=== PATIENT | male | born 1940 | race Caucasian/White ===

== ENCOUNTER → 2018-09-30 | Outpatient (CLI) | payer OTHER ==
[~2018-09-30] MED LIST: ACETAMINOPHEN325 M1 PO; ADULT LOW DOSE81 MG PO; ALTACE5 M1 PO; EFFIENT10 MG PO; FISHOIL; LOPRESSOR PO; NIASPAN PO; OMEPRAZOLE40 MG PO; SIMVASTATIN80 MG PO
== END ==
LOC: HYPER
DX: L59.8 Other specified disorders of the skin and subcutaneous tissue related to radiation (principal); N30.41 Irradiation cystitis with hematuria; R73.09 Other abnormal glucose; Y84.2 Radiological procedure and radiotherapy as the cause of abnormal reaction of the patient, or of later complication, without mention of misadventure at the time of the procedure

== ENCOUNTER → 2018-10-01 | Outpatient (CLI) | payer OTHER | LOC: HYPER | DX: L59.8 Other specified disorders of the skin and subcutaneous tissue related to radiation (principal); N30.41 Irradiation cystitis with hematuria; R73.09 Other abnormal glucose; Y84.2 Radiological procedure and radiotherapy as the cause of abnormal reaction of the patient, or of later complication, without mention of misadventure at the time of the procedure ==

== ENCOUNTER → 2018-10-02 | Outpatient (CLI) | payer OTHER | LOC: HYPER 10-01 07:42 | DX: L59.8 Other specified disorders of the skin and subcutaneous tissue related to radiation (principal); N30.41 Irradiation cystitis with hematuria; M87.38 Other secondary osteonecrosis, other site; R73.09 Other abnormal glucose; Y84.2 Radiological procedure and radiotherapy as the cause of abnormal reaction of the patient, or of later complication, without mention of misadventure at the time of the procedure ==

== ENCOUNTER → 2018-10-03 | Outpatient (CLI) | payer OTHER | LOC: HYPER 07:05 | DX: L59.8 Other specified disorders of the skin and subcutaneous tissue related to radiation (principal); N30.41 Irradiation cystitis with hematuria; M87.38 Other secondary osteonecrosis, other site; R73.09 Other abnormal glucose; Y84.2 Radiological procedure and radiotherapy as the cause of abnormal reaction of the patient, or of later complication, without mention of misadventure at the time of the procedure ==

== ENCOUNTER → 2018-10-04 | Outpatient (CLI) | payer OTHER | LOC: HYPER 07:56 | DX: L59.8 Other specified disorders of the skin and subcutaneous tissue related to radiation (principal); M87.38 Other secondary osteonecrosis, other site; N30.41 Irradiation cystitis with hematuria; R73.09 Other abnormal glucose; Y84.2 Radiological procedure and radiotherapy as the cause of abnormal reaction of the patient, or of later complication, without mention of misadventure at the time of the procedure ==

== ENCOUNTER → 2018-10-07 | Outpatient (CLI) | payer OTHER | LOC: HYPER 07:10 | DX: L59.8 Other specified disorders of the skin and subcutaneous tissue related to radiation (principal); N30.41 Irradiation cystitis with hematuria; M87.88 Other osteonecrosis, other site; R73.09 Other abnormal glucose; Y84.2 Radiological procedure and radiotherapy as the cause of abnormal reaction of the patient, or of later complication, without mention of misadventure at the time of the procedure ==

== ENCOUNTER → 2018-10-08 | Outpatient (CLI) | payer OTHER | LOC: HYPER 06:59 | DX: L59.8 Other specified disorders of the skin and subcutaneous tissue related to radiation (principal); N30.41 Irradiation cystitis with hematuria; M87.88 Other osteonecrosis, other site; R73.09 Other abnormal glucose; Y84.2 Radiological procedure and radiotherapy as the cause of abnormal reaction of the patient, or of later complication, without mention of misadventure at the time of the procedure ==

== ENCOUNTER → 2018-10-15 | Outpatient (CLI) | payer OTHER | LOC: HYPER 06:37 | DX: L59.8 Other specified disorders of the skin and subcutaneous tissue related to radiation (principal); N30.41 Irradiation cystitis with hematuria; R73.09 Other abnormal glucose; Y84.2 Radiological procedure and radiotherapy as the cause of abnormal reaction of the patient, or of later complication, without mention of misadventure at the time of the procedure ==

== ENCOUNTER → 2018-10-16 | Outpatient (CLI) | payer OTHER | LOC: HYPER 06:50 | DX: L59.8 Other specified disorders of the skin and subcutaneous tissue related to radiation (principal); N30.41 Irradiation cystitis with hematuria; R73.09 Other abnormal glucose; Y84.2 Radiological procedure and radiotherapy as the cause of abnormal reaction of the patient, or of later complication, without mention of misadventure at the time of the procedure ==

== ENCOUNTER → 2018-10-17 | Outpatient (CLI) | payer OTHER | LOC: HYPER 10-14 14:24 | DX: L59.8 Other specified disorders of the skin and subcutaneous tissue related to radiation (principal); N30.41 Irradiation cystitis with hematuria; M87.88 Other osteonecrosis, other site; R73.09 Other abnormal glucose; Y84.2 Radiological procedure and radiotherapy as the cause of abnormal reaction of the patient, or of later complication, without mention of misadventure at the time of the procedure ==

== ENCOUNTER → 2018-10-18 | Outpatient (CLI) | payer OTHER | LOC: HYPER 07:43 | DX: L59.8 Other specified disorders of the skin and subcutaneous tissue related to radiation (principal); N30.41 Irradiation cystitis with hematuria; M87.88 Other osteonecrosis, other site; R73.09 Other abnormal glucose; Y84.2 Radiological procedure and radiotherapy as the cause of abnormal reaction of the patient, or of later complication, without mention of misadventure at the time of the procedure ==

== ENCOUNTER → 2018-10-21 | Outpatient (CLI) | payer OTHER | LOC: HYPER 07:00 | DX: L59.8 Other specified disorders of the skin and subcutaneous tissue related to radiation (principal); N30.41 Irradiation cystitis with hematuria; M87.88 Other osteonecrosis, other site; R73.09 Other abnormal glucose; Y84.2 Radiological procedure and radiotherapy as the cause of abnormal reaction of the patient, or of later complication, without mention of misadventure at the time of the procedure ==

== ENCOUNTER → 2018-10-22 | Outpatient (CLI) | payer OTHER | LOC: HYPER 06:48 | DX: L59.8 Other specified disorders of the skin and subcutaneous tissue related to radiation (principal); N30.41 Irradiation cystitis with hematuria; M87.88 Other osteonecrosis, other site; R73.09 Other abnormal glucose; Y84.2 Radiological procedure and radiotherapy as the cause of abnormal reaction of the patient, or of later complication, without mention of misadventure at the time of the procedure ==

== ENCOUNTER → 2018-10-23 | Outpatient (CLI) | payer OTHER | LOC: HYPER 07:05 | DX: L59.8 Other specified disorders of the skin and subcutaneous tissue related to radiation (principal); N30.41 Irradiation cystitis with hematuria; M87.88 Other osteonecrosis, other site; R73.09 Other abnormal glucose; Y84.2 Radiological procedure and radiotherapy as the cause of abnormal reaction of the patient, or of later complication, without mention of misadventure at the time of the procedure ==

== ENCOUNTER → 2018-10-24 | Outpatient (CLI) | payer OTHER | LOC: HYPER | DX: L59.8 Other specified disorders of the skin and subcutaneous tissue related to radiation (principal); N30.41 Irradiation cystitis with hematuria; M87.88 Other osteonecrosis, other site; R73.09 Other abnormal glucose; Y84.2 Radiological procedure and radiotherapy as the cause of abnormal reaction of the patient, or of later complication, without mention of misadventure at the time of the procedure ==

== ENCOUNTER → 2018-10-25 | Outpatient (CLI) | payer OTHER | LOC: HYPER | DX: L59.8 Other specified disorders of the skin and subcutaneous tissue related to radiation (principal); N30.41 Irradiation cystitis with hematuria; M87.88 Other osteonecrosis, other site; R73.09 Other abnormal glucose; Y84.2 Radiological procedure and radiotherapy as the cause of abnormal reaction of the patient, or of later complication, without mention of misadventure at the time of the procedure ==

== ENCOUNTER → 2018-10-29 | Outpatient (CLI) | payer OTHER | LOC: HYPER 06:50 | DX: L59.8 Other specified disorders of the skin and subcutaneous tissue related to radiation (principal); N30.41 Irradiation cystitis with hematuria; M87.88 Other osteonecrosis, other site; R73.09 Other abnormal glucose; Y84.2 Radiological procedure and radiotherapy as the cause of abnormal reaction of the patient, or of later complication, without mention of misadventure at the time of the procedure ==

== ENCOUNTER → 2018-10-30 | Outpatient (CLI) | payer OTHER | LOC: HYPER 06:58 | DX: L59.8 Other specified disorders of the skin and subcutaneous tissue related to radiation (principal); N30.41 Irradiation cystitis with hematuria; M87.38 Other secondary osteonecrosis, other site; R73.09 Other abnormal glucose; Y84.2 Radiological procedure and radiotherapy as the cause of abnormal reaction of the patient, or of later complication, without mention of misadventure at the time of the procedure ==

== ENCOUNTER → 2018-10-31 | Outpatient (CLI) | payer OTHER | LOC: HYPER 10-28 07:05 | DX: L59.8 Other specified disorders of the skin and subcutaneous tissue related to radiation (principal); N30.41 Irradiation cystitis with hematuria; M87.38 Other secondary osteonecrosis, other site; R73.09 Other abnormal glucose; Y84.2 Radiological procedure and radiotherapy as the cause of abnormal reaction of the patient, or of later complication, without mention of misadventure at the time of the procedure ==

== ENCOUNTER → 2018-11-01 | Outpatient (CLI) | payer OTHER | LOC: HYPER 07:39 | DX: L59.8 Other specified disorders of the skin and subcutaneous tissue related to radiation (principal); N30.41 Irradiation cystitis with hematuria; R73.09 Other abnormal glucose; Y84.2 Radiological procedure and radiotherapy as the cause of abnormal reaction of the patient, or of later complication, without mention of misadventure at the time of the procedure ==

== ENCOUNTER → 2018-11-04 | Outpatient (CLI) | payer OTHER | LOC: HYPER 06:53 | DX: L59.8 Other specified disorders of the skin and subcutaneous tissue related to radiation (principal); N30.41 Irradiation cystitis with hematuria; M87.38 Other secondary osteonecrosis, other site; R73.01 Impaired fasting glucose; Y84.2 Radiological procedure and radiotherapy as the cause of abnormal reaction of the patient, or of later complication, without mention of misadventure at the time of the procedure ==

== ENCOUNTER → 2018-11-05 | Outpatient (CLI) | payer OTHER | LOC: HYPER 07:03 | DX: L59.8 Other specified disorders of the skin and subcutaneous tissue related to radiation (principal); N30.41 Irradiation cystitis with hematuria; M87.38 Other secondary osteonecrosis, other site; R73.09 Other abnormal glucose; Y84.2 Radiological procedure and radiotherapy as the cause of abnormal reaction of the patient, or of later complication, without mention of misadventure at the time of the procedure ==

== ENCOUNTER → 2018-11-06 | Outpatient (CLI) | payer OTHER | LOC: HYPER 06:50 | DX: L59.8 Other specified disorders of the skin and subcutaneous tissue related to radiation (principal); N30.41 Irradiation cystitis with hematuria; R73.09 Other abnormal glucose; Y84.2 Radiological procedure and radiotherapy as the cause of abnormal reaction of the patient, or of later complication, without mention of misadventure at the time of the procedure ==

== ENCOUNTER → 2018-11-07 | Outpatient (CLI) | payer OTHER | LOC: HYPER 07:00 | DX: L59.8 Other specified disorders of the skin and subcutaneous tissue related to radiation (principal); N30.41 Irradiation cystitis with hematuria; M87.38 Other secondary osteonecrosis, other site; Y84.2 Radiological procedure and radiotherapy as the cause of abnormal reaction of the patient, or of later complication, without mention of misadventure at the time of the procedure ==

== ENCOUNTER → 2018-11-08 | Outpatient (CLI) | payer OTHER | LOC: HYPER 07:45 | DX: L59.8 Other specified disorders of the skin and subcutaneous tissue related to radiation (principal); N30.41 Irradiation cystitis with hematuria; M87.38 Other secondary osteonecrosis, other site; Y84.2 Radiological procedure and radiotherapy as the cause of abnormal reaction of the patient, or of later complication, without mention of misadventure at the time of the procedure ==

== ENCOUNTER → 2018-11-13 | Outpatient (CLI) | payer OTHER | LOC: HYPER 06:58 | DX: L59.8 Other specified disorders of the skin and subcutaneous tissue related to radiation (principal); N30.41 Irradiation cystitis with hematuria; M87.38 Other secondary osteonecrosis, other site; Y84.2 Radiological procedure and radiotherapy as the cause of abnormal reaction of the patient, or of later complication, without mention of misadventure at the time of the procedure ==

== ENCOUNTER → 2018-11-14 | Outpatient (CLI) | payer OTHER | LOC: HYPER 06:51 | DX: L59.8 Other specified disorders of the skin and subcutaneous tissue related to radiation (principal); N30.41 Irradiation cystitis with hematuria; M87.38 Other secondary osteonecrosis, other site; Y84.2 Radiological procedure and radiotherapy as the cause of abnormal reaction of the patient, or of later complication, without mention of misadventure at the time of the procedure ==

== ENCOUNTER → 2018-11-15 | Outpatient (CLI) | payer OTHER | LOC: HYPER 07:00 | DX: L59.8 Other specified disorders of the skin and subcutaneous tissue related to radiation (principal); N30.41 Irradiation cystitis with hematuria; M87.38 Other secondary osteonecrosis, other site; Y84.2 Radiological procedure and radiotherapy as the cause of abnormal reaction of the patient, or of later complication, without mention of misadventure at the time of the procedure ==

== ENCOUNTER → 2018-11-20 | Outpatient (CLI) | payer OTHER | LOC: HYPER 07:32 | DX: L59.8 Other specified disorders of the skin and subcutaneous tissue related to radiation (principal); N30.41 Irradiation cystitis with hematuria; M87.38 Other secondary osteonecrosis, other site; Y84.2 Radiological procedure and radiotherapy as the cause of abnormal reaction of the patient, or of later complication, without mention of misadventure at the time of the procedure ==

== ENCOUNTER → 2018-11-21 | Outpatient (CLI) | payer OTHER | LOC: HYPER 05:30 | DX: L59.8 Other specified disorders of the skin and subcutaneous tissue related to radiation (principal); N30.41 Irradiation cystitis with hematuria; M87.38 Other secondary osteonecrosis, other site; Y84.2 Radiological procedure and radiotherapy as the cause of abnormal reaction of the patient, or of later complication, without mention of misadventure at the time of the procedure ==

== ENCOUNTER → 2018-11-25 | Outpatient (CLI) | payer OTHER | LOC: HYPER 06:50 | DX: L59.8 Other specified disorders of the skin and subcutaneous tissue related to radiation (principal); N30.41 Irradiation cystitis with hematuria; M87.38 Other secondary osteonecrosis, other site; Y84.2 Radiological procedure and radiotherapy as the cause of abnormal reaction of the patient, or of later complication, without mention of misadventure at the time of the procedure ==

== ENCOUNTER → 2018-11-26 | Outpatient (CLI) | payer OTHER | LOC: HYPER 06:43 | DX: L59.8 Other specified disorders of the skin and subcutaneous tissue related to radiation (principal); N30.41 Irradiation cystitis with hematuria; M87.38 Other secondary osteonecrosis, other site; Y84.2 Radiological procedure and radiotherapy as the cause of abnormal reaction of the patient, or of later complication, without mention of misadventure at the time of the procedure ==

== ENCOUNTER → 2018-11-27 | Outpatient (CLI) | payer OTHER | LOC: HYPER 06:32 | DX: L59.8 Other specified disorders of the skin and subcutaneous tissue related to radiation (principal); N30.41 Irradiation cystitis with hematuria; M87.38 Other secondary osteonecrosis, other site; Y84.2 Radiological procedure and radiotherapy as the cause of abnormal reaction of the patient, or of later complication, without mention of misadventure at the time of the procedure ==

== ENCOUNTER → 2018-12-02 | Outpatient (CLI) | payer OTHER | LOC: HYPER 06:53 | DX: L59.8 Other specified disorders of the skin and subcutaneous tissue related to radiation (principal); N30.41 Irradiation cystitis with hematuria; M87.38 Other secondary osteonecrosis, other site; Y84.2 Radiological procedure and radiotherapy as the cause of abnormal reaction of the patient, or of later complication, without mention of misadventure at the time of the procedure ==

== ENCOUNTER → 2018-12-03 | Outpatient (CLI) | payer OTHER | LOC: HYPER 06:51 | DX: L59.8 Other specified disorders of the skin and subcutaneous tissue related to radiation (principal); N30.41 Irradiation cystitis with hematuria; M87.38 Other secondary osteonecrosis, other site; Y84.2 Radiological procedure and radiotherapy as the cause of abnormal reaction of the patient, or of later complication, without mention of misadventure at the time of the procedure ==

== ENCOUNTER → 2018-12-04 | Outpatient (CLI) | payer OTHER | LOC: HYPER 06:37 | DX: L59.8 Other specified disorders of the skin and subcutaneous tissue related to radiation (principal); N30.41 Irradiation cystitis with hematuria; M87.38 Other secondary osteonecrosis, other site; Y84.2 Radiological procedure and radiotherapy as the cause of abnormal reaction of the patient, or of later complication, without mention of misadventure at the time of the procedure ==

== ENCOUNTER → 2018-12-05 | Outpatient (CLI) | payer OTHER | LOC: HYPER 07:09 | DX: L59.8 Other specified disorders of the skin and subcutaneous tissue related to radiation (principal); N30.41 Irradiation cystitis with hematuria; M87.38 Other secondary osteonecrosis, other site; Y84.2 Radiological procedure and radiotherapy as the cause of abnormal reaction of the patient, or of later complication, without mention of misadventure at the time of the procedure ==

== ENCOUNTER → 2018-12-06 | Outpatient (CLI) | payer OTHER | LOC: HYPER 08:25 | DX: L59.8 Other specified disorders of the skin and subcutaneous tissue related to radiation (principal); N30.41 Irradiation cystitis with hematuria; M87.38 Other secondary osteonecrosis, other site; Y84.2 Radiological procedure and radiotherapy as the cause of abnormal reaction of the patient, or of later complication, without mention of misadventure at the time of the procedure ==

== ENCOUNTER → 2018-12-09 | Outpatient (CLI) | payer OTHER | LOC: HYPER 06:55 | DX: L59.8 Other specified disorders of the skin and subcutaneous tissue related to radiation (principal); N30.41 Irradiation cystitis with hematuria; M87.38 Other secondary osteonecrosis, other site; Y84.2 Radiological procedure and radiotherapy as the cause of abnormal reaction of the patient, or of later complication, without mention of misadventure at the time of the procedure ==